=== PATIENT | female | born 1985 | race Caucasian/White ===

== ENCOUNTER 2023-04-18 08:43 | Outpatient (AMB) | payer OTHER, SELFPAY ==
[2023-04-18 08:53] VITALS: BP 124/60; PULSE 110; RESP 13; O2SAT 97; BMI 33.9
--- NOTE | 2023-04-18 08:53 | AM.OFFWIN_ITS ---
Intake Vital Signs 04/18/23 08:53 Height 5 ft 6 in Weight 210 lb BMI 33.9 BP 124/60 Blood Pressure Location Rt brachial Position Sitting Respiration 13 Pulse 110 H Pulse Source Pulse Oximeter Pulse Oximetry (%) 97 Oxygen Delivery Method Room Air Intake Visit Reasons: pink eye,congestion Intake Note: Patient is here to be assessed for pink eye which began 4 days ago with pink irritated eyes. This morning patient reports she had crusty eyes. Patient Tobacco Use Status: Never used Tobacco Accompanied by: Self / Same As Patient Allergies oxycodone [From Percocet] Allergy (Severe, Verified 04/18/23 09:05) Nausea and Vomiting Medication List - Last Reconciled 04/18/23 by Jovita Hernandez, [employer]VERTISING [employer]ATOR- desogestrel-ethinyl estradiol 0.15-0.03 mg (Apri) 1 tab PO DAILY lactobacillus combination no.9 (Adult 50 Plus Probiotic) PO Do you need a note to return to daycare/school/sports/work: Yes HPI HPI Comments History of Present Illness Details here today c/o pink eye 4 days ago, left eye was red; that night some drainage this AM woke up w/ crusting Crusting is now affecting bilat eyes L eye is itchy Exosed to dtr w/ pink eye - used polymyxin b however reports no improvement Assoc sx include sinus pressure and congestion Denies loss of vision, contact lenses. Glasses for driving only. Denies trauma to eye PFSH Social History Patient Tobacco Use Status: Never used Tobacco Review of Systems Const All systems reviewed & are unremarkable except as noted in HPI and below Physical Exam Vital Signs: Last Vital Signs Pulse 110 H 04/18/23 08:53 Resp 13 04/18/23 08:53 BP 124/60 04/18/23 08:53 Pulse Ox 97 04/18/23 08:53 Oxygen Delivery Method Room Air 04/18/23 08:53 BMI result Body Mass Index 33.9 Const Other: awake alert nad conjunctival injection bilat R>L, purulent drainage. No periorbital edema or photophobia PERRLA, EOMI EAC w/ cerumen Nares and turbinates wnl, maxillary tenderness w/ palp pharynx clear Assessment & Plan Assessment & Plan (1) Sinusitis: Code(s): J32.9 - Chronic sinusitis, unspecified Qualifiers: Sinusitis location: maxillary Chronicity: acute Recurrence: non- recurrent Qualified Code(s): J01.00 - Acute maxillary sinusitis, unspecified Plan: . (2) Conjunctivitis: Code(s): H10.9 - Unspecified conjunctivitis Qualifiers: Conjunctivitis type: acute Acute conjunctivitis type: bacterial Laterality: bilateral Qualified Code(s): H10.33 - Unspecified acute conjunctivitis, bilateral Plan: . Medications: New polymyxin B sulf-trimethoprim 10,000 unit- 1 mg/mL APPLY TO BOTH EYES while awake; do not exceed 6 doses in 24 hours 1 drp ophthalmic (eye) QID 5 days 10 mL 0RF amoxicillin-pot clavulanate 875-125 mg 1 tab PO BID 7 days 14 tabs 0RF Coding Level of Care Code Est Pt Level 3 (22367) Diagnoses Acute non-recurrent maxillary sinusitis J01.00 Sinusitis location: maxillary Chronicity: acute Recurrence: non-recurrent Acute bacterial conjunctivitis of both eyes H10.33 Conjunctivitis type: acute Acute conjunctivitis type: bacterial Laterality: bilateral
== END 2023-04-18 09:14 | disposition home or self-care (01) ==
PROVIDERS: Visit Provider Nurse Practitioner Family
DX: J01.00 Acute maxillary sinusitis, unspecified (principal); H10.33 Unspecified acute conjunctivitis, bilateral
CPT/HCPCS: 99213

== ENCOUNTER 2023-10-20 13:10 | Outpatient (AMB) | payer OTHER, SELFPAY ==
--- NOTE | 2023-10-20 13:18 | A.OFFPC_ITS ---
Vital Signs 3 10/20/23 13:24 Height 5 ft 6 in Weight 211 lb BMI 34.1 BP 118/72 Blood Pressure Location Rt brachial Position Sitting Respiration 16 Pulse 68 Pulse Source Pulse Oximeter Temp 98.0 F Temp Source Oral Pulse Oximetry (%) 99 Oxygen Delivery Method Room Air Intake Visit Reasons: TRANSMISSION REPAIRER/ Future operations, need new pcp Intake Note: patient here for new patient visit. Manager Field Investigations Required: No Is last menstrual period known: Yes Last menstrual period: 10/13/23 Post menopausal: No Patient : No Allergies oxycodone [From Percocet] Allergy (Severe, Verified 10/20/23 13:38) Nausea and Vomiting Medication List - Last Reconciled 10/20/23 by Jovita Hernandez, [facility]- desogestrel-ethinyl estradiol 0.15-0.03 mg (Apri) 1 tab PO DAILY lactobacillus combination no.9 (Adult 50 Plus Probiotic) PO Tobacco use date assessed: 10/20/23 Dental Screening Dental Screen Date: 10/20/23 Did you have a dental visit in the last 12 months?: Yes Did you have a dental problem in the last 6 months where you did not have access to dental care?: No Was dental information given to patient?: Patient has dentist HPI HPI Comments 2 History of Present Illness0 Details 38 y/o F basal cell carcinoma, renal sto judith Social: works as teacher Surgery: wisdom teeth, c section, renal stone PaternalGM age 60, she is still alive and well, Dad up to date on colon and WNL. Children: 2 boy age 8 and girl 6, alive and well. Maternal aunt with melanoma - alive. MaternalGF with SCC and Basal cell Mom with CLL, thyroid removed d/t goiter - alive. Health Maintenance Mammo August 2023 normal Tdap 2014 will update this today given her surgery in December UTD Specialist: Derm Optho July [address] Armstrong Here today as a new patient to establish care and for complete physical exam. No previous medical records available to me today. She reports that overall her health is well. At this time she is undergoing treatment for a basal cell carcinoma on the inner canthus of her eye, nasal side on the left. We will be having this removed January 25, [address] Zelaya @ [facility], followed by plastic surgery repair to the area by Dr Posey the same day Will need pre-op appt for this. Waiting on paperwork from surgeon's office at this time. General: Well developed, well nourished, in no acute distress. Appears stated age. Head: Normocephalic, atraumatic. Eyes: Pupils are equal, round and reactive to light and accommodation. Conjunctivae are clear. Vision grossly normal. Ears: TMs clear AU, EACS WNL Nose: Patent, without discharge. Mouth: There are no ulcers or lesions noted. No inflammation, no post nasal drip, no plaques nor exudates. Neck: Supple, no adenopathy or thyromegaly. Lungs: Clear to auscultation bilaterally. No rales, rhonchi or wheeze noted. Good air flow in all vallejo. Heart: Regular rate and rhythm. No murmurs, click, rubs or gallops are noted. Abdomen: Bowel sounds present in all quadrants. The abdomen is soft, nontender, with no masses or organomegaly noted. No hernias are noted. Musculoskeletal: Joints are nontender, without swelling, redness, or effusions. Range of motion is observed to be normal. Pulses: Peripheral pulses are equal and palpable bilaterally. Extremities: No clubbing, cyanosis nor edema is noted. Neurologic: Gait and station normal. Cranial Nerves 2-12 intact. Motor strength grossly symmetrical and intact. No sensory loss. Balance normal. Skin: No rashes, ulcers, or lesions noted. Turgor is good. Skin color is good. Hair and nails are without abnormalities. Psych: Normal eye contact, affect and mood appropriate, and normal interactions. Patient is alert and appropriate to context. Plan Return to the office the week of December for a preop clearance. Cancer screening labs done tomorrow, if there is anything abnormal I will call you and we will set up a plan to resolve these issues. Return to the office sooner as needed. [facility] Medical History (Updated 10/20/23 @ 16:42 by [facility] Skin cancer, basal cell Surgical History (Updated 10/20/23 @ 13:32 by Nae Awan) History of Family History (Updated 10/20/23 @ 13:36 by Nae Awan) Mother FH: mental illness High blood pressure Thyroid disorder Cancer Father High blood pressure Clotting disorder Paternal Grandmother Cancer Maternal Grandmother Cancer Social History Housing: House Patient Tobacco Use Status: Never used Tobacco e-Cigarette/Vaping Use: Never Used service: No Current occupational status: employed Current occupation: teacher Current occupational exposures/hazards: No Cognitive needs: No Hearing needs: No Vision needs: No Female Reproductive History Menstrual Date of last menstrual period: 10/13/23 Questionnaire PHQ-9 Over the last 2 weeks, how often have you been bothered by any of the following problems? 1. Little interest or pleasure in doing things: not at all 2. Feeling down, depressed, or hopeless: not at all 3. Trouble falling or staying asleep, or sleeping too much: not at all 4. Feeling tired or having little energy: not at all 5. Poor appetite or overeating: not at all 6. Feeling bad about yourself - or that you are a failure or have let yourself or your family down: not at all 7. Trouble concentrating on things, such as reading the newspaper or watching television: not at all 8. Moving or speaking so slowly that other people could have noticed. Or the opposite - being so fidgety or restless that you have been moving around a lot more than usual: not at all 9. Thoughts that you would be better off or of hurting yourself in some way: not at all Total score: 0 Depression Screening Interpretation: Negative Depression Screening Done: Yes 98165 - PHQ-9 Billing: Yes Source: Developed by Drs. Theodore Aguilera, Aleksandra Prater, Ashok Delgado and colleagues, with an educational santos from [employer]. Thrive Questionnaire Date Thrive assessed: 10/20/23 I am a: Patient What is your living situation today?: I have a steady place to live Within the past 12 months, did the food you bought not last and you didn't have the money to get more?: Never true Within the past 12 months, did you worry whether your food would run out before you got money to buy more?: Never true Do you have trouble paying for medicines?: No Do you have trouble getting transportation to medical appointments?: No Do you have trouble paying your heating and electricity bill?: No Do you have trouble taking care of your child, family member or friend?: No Do you have trouble with day-to-day activities such as bathing, preparing meals, shopping, managing finances, etc.?: No Are you currently unemployed and looking for a job?: No Are you interested in more education?: No Please select the resources that you would like help with: None Currently or been in a relationship where the following occur: No concerns reported THRIVE Score: 0 AUDIT C Alcohol Use Questionnaire (AUDIT-C) 1. How often do you have a drink containing alcohol?: Monthly or less 2. How many drinks containing alcohol do you have on a typical day when you are drinking?: 1 or 2 3. How often do you have six or more drinks on one occasion?: Never Total Score: 1 Score Reviewed/Action Taken: Yes YESSY-7 AMB Questionnaire YESSY-7 Date YESSY - 7 assessed: 10/20/23 Feeling nervous, anxious, or on edge: 0 = Not at all Not being able to stop or control worryin = Not at all Worrying too much about different things: 0 = Not at all Trouble relaxin = Not at all Being so restless that it is hard to sit still: 0 = Not at all Becoming easily annoyed or irritable: 0 = Not at all Feeling afraid as if something awful might happen: 0 = Not at all Total YESSY-7 score (0-4 normal; 5-9 mild; 10-14 moderate; 15-21 severe): 0 Source: Developed by Drs. Theodore Aguilera, Aleksandra Prater, Ashok Delgado and colleagues, with an educational santos from [employer]. YESSY-7 Assessment Billing YESSY-7 Assessment Tool: YESSY-7 Assessment 67605 Physical exam (Primary Care) Vital Signs: Last Vital Signs Temp 98.0 F 10/20/23 13:24 Pulse 68 10/20/23 13:24 Resp 16 10/20/23 13:24 BP 118/72 10/20/23 13:24 Pulse Ox 99 10/20/23 13:24 Oxygen Delivery Method Room Air 10/20/23 13:24 BMI result Body Mass Index 34.1 BMI Assessment/Plan discussion: High BMI High, discussed plan: lifestyle Tobacco/Smoking Status: Tobacco use Status Tobacco use date assessed 10/20/23 10/20/23 13:24 Patient Tobacco Use Status Never used Tobacco 10/20/23 13:20 e-Cigarette/Vaping Use Never Used 10/20/23 13:24 PHQ-9: PHQ-9 Score PHQ-9: Total score 0 10/20/23 14:23 Depression Screening Interpretation: Negative Thrive Assessment: Date of Thrive Assessment Date Thrive assessed 10/20/23 10/20/23 13:36 Currently or been in a relationship where the following occur: No concerns reported [facility] Face images: 2 1. Two raised flesh colored bumps. Patient reports this is the basal cell carcinoma that will be removed in December Immunizations Boostrix Tdap 2.5 Lf unit-8 mcg-5 Lf/0.5 mL intramuscular syringe Performing Provider: EILEEN Vicente Performing Location: [facility] Administered by: Manuela De Dios RN on 10/20/23 14:23 2 Dose Route Admin Location Dispensed Lot Number Expiration Date NDC Chief Science Officer 0.5 mL IM Left Deltoid 0.5 mL [id number] 11/03/25 17283-359-15 [place] 2 VIS Given Date VIS Provided VIS Publication Date 10/20/23 Single Vaccine 20 Eligibility Eligibility Date Funding Source Not [facility] Eligible 10/20/23 Private Assessment and Plan Assessment & Plan (1) Encounter for general adult medical examination without abnormal findings: Code(s): Z00.00 - Encounter for general adult medical examination without abnormal findings (2) Laboratory exam ordered as part of routine general medical examination: Code(s): Z00.00 - Encounter for general adult medical examination without abnormal findings (3) Basal cell carcinoma, face: Code(s): C44.310 - Basal cell carcinoma of skin of unspecified parts of face (4) Obesity (BMI 30.0-34.9): Code(s): E66.9 - Obesity, unspecified Orders: Orders 2 TSH reflex Free T4 Today Z00.00 - Encounter for general adult medical examination without abnormal findings Vitamin B12 and Folate Today Z00.00 - Encounter for general adult medical examination without abnormal findings IRON PROFILE Today Z00.00 - Encounter for general adult medical examination without abnormal findings Comprehensive Met. Panel Today Z00.00 - Encounter for general adult medical examination without abnormal findings Hemoglobin A1c Today Z00.00 - Encounter for general adult medical examination without abnormal findings Microalbumin, Random (w Creat) Today Z00.00 - Encounter for general adult medical examination without abnormal findings Complete Blood Count no Diff Today Z00.00 - Encounter for general adult medical examination without abnormal findings TDaP Immunization Today Z23 - Encounter for immunization LDL Cholesterol Direct Today Z00.00 - Encounter for general adult medical examination without abnormal findings Patient Instructions: Walk-In Care (Urgent Care): We Make it Easy Walk-in for urgent medical issues such as: ? Seasonal Allergies ? Insect Bites ? Cough ? Diarrhea ? Acute Asthma Attacks ? Back, Knee or Joint Pain ? Ear Infection ? Fever without a Rash ? Headaches ? Nausea ? [place] Eye, Rash or Skin Irritation ? Sore Throat ? Sports Physicals ? Vomiting Most insurances are accepted. Patients do not need to be part of the [facility] to seek care at the walk-in clinic. Locations [address] , [place] [address] ? [phone] [facility] Walk-In Care in [place] provides services to ages 18 and over. Open Tuesday-Tuesday: 8 a.m. to 5 p.m. and Tuesday: 9 a.m. to 3 p.m.* *Hours may vary due to staffing availability. To confirm Walk-In Care hours in [place], please call [phone]. [address] [place] [address] ? [phone] [facility] Walk-In Care in [place] provides services to ages 12 and over. Open Tuesday-Tuesday: 8 a.m. to 5 p.m. Hours may vary due to staffing availability. To confirm Walk-In Care hours in [place], please call [phone]. LABORATORY SERVICES: [facility] ? Primary Location [address] [place] [address] Tuesday through Tuesday 6:00 AM ? 5:00 PM Tuesday 7:00 AM ? 11:00 AM* [phone] The [facility] is centrally located near the front entrance of the [facility] for easy outpatient access. Convenient parking is provided for outpatients. *Hours may vary due to staffing availability. To confirm Laboratory hours for any location, please call [phone]. Offsite Location For your convenience, we offer offsite laboratory draw stations at the following locations: [address] [place] [address] ? [place] [address], [address], [place] Tuesday through Tuesday 7:30 AM ? 1:00 PM* [phone] *Hours may vary due to staffing availability. To confirm Laboratory hours for any location, please call [phone]. [place] [address] [facility], [place] Tuesday through Tuesday 6:00 AM ? 3:30 PM* Tuesday 6:30 AM ? 3 PM* [phone] *Hours may vary due to staffing availability. To confirm Laboratory hours for any location, please call [phone]. [address] [facility] Tuesday through Tuesday 7:30 AM ? 4:00 PM* [phone] *Hours may vary due to staffing availability. To confirm Laboratory hours for any location, please call [phone] [place] [address] Tuesday through 9:00 AM ? 4:00 PM* *Hours may vary due to staffing availability. To confirm Laboratory hours for any location, please call [phone]. Appointments are not necessary. Walk-ins are welcome. Like all the departments throughout the [facility], our Lab undergoes frequent reviews to ensure the quality and accuracy of test results, and our staff takes special pride in its status as a nationally accredited facility. Patient Portal: ONE PATIENT. ONE RECORD. BETTER CARE. [facility] has a fully integrated, cutting- edge mobile electronic health information system that has revolutionized the way we care for our patients and manage our organization. This system improves communication and coordination enabling us to provide safe, higher-quality care, and an overall positive experience for staff and patients. Our first priority, as always, is to deliver the highest quality care possible. The system is running in the background supporting that priority. This portal is for all [facility] services and practices. If you are experiencing any technical difficulties with enrolling or logging into the Patient Portal please complete the [facility] Patient Portal Technical Support Form. [facility] now offers a new secure on-line interactive tool for patients to review their health information ? Patient Portal. This interactive web portal will enable patients and their families to take an active role in their care by providing easy, secure access to their health information via the internet. The Patient Portal provides patients with instant access to their health information, including laboratory results, medications, allergies, demographic information, visit history, and more. In addition to managing their own care, parents and health care proxies with authorized consent will appreciate the ability to access the records of those individuals for whom they provide care. Please note: if you wish to gain access (Proxy) to another patient?s portal, you will be required to come to the Medical Records Department in person at [facility]. Both the patient giving proxy access and the proxy will need to provide photo identification and complete the appropriate authorization. The Patient Portal also allows track their appointments online. The [facility] Patient Portal also saves patients time by allowing them to submit updates to their demographic and contact information prior to their visits. Portal email notifications will also alert patients to any new activity on their portal, such as test results and new appointments. In order to initially enroll in the [facility] Patient Portal, you will need to enter some required information including the following: ? your [facility] Medical Record number ? your personal home email address ? name ? date of Please note: In order to enroll in the [facility] Patient Portal, we need to have your email address on file in your electronic medical record. The email address needs to be specific for one person (yourself) in order for your Portal enrollment to be successful. You can update your email address in person with our Registration staff when you are registering for a hospital visit. Otherwise, you will need to come to the Health Information Management (Medical Records) Department at [facility]. We are open from Tuesday ? Tuesday from 7:30 a.m. ? 4:30 p.m. You will be required to present a photo id. Once you have successfully enrolled in the Patient Portal, you will receive a one-time user id and password for the Portal, sent to your email address. This will allow you to log into the Patient Portal within 99 hrs and reset your own logon id and password, and define personal security questions. Once your permanent login and password have been set, you can log into the [facility] Patient Portal at any time via the blue button above or from the Portal Logon button on any page of the [facility] website. [facility] encourage all of our patients to enroll in Patient Portal as it presents a valuable opportunity for patients and their families to actively participate in their care and stay healthy Welcome to [facility]. We look forward to working with you. Health screenings for women You should visit your health care provider from time to time, even if you are healthy. The purpose of these visits is to: Screen for medical issues Assess your risk for future medical problems Encourage a healthy lifestyle Update vaccinations and other preventive care services Help you get to know your provider in case of an illness Information Even if you feel fine, you should still see your provider for regular checkups. These visits can help you avoid problems in the future. For example, the only way to find out if you have high blood pressure is to have it checked regularly. High blood sugar and high cholesterol levels also may not have any symptoms in the early stages. A simple blood test can check for these conditions. There are specific times when you should see your provider or receive specific health screenings. The [place] Preventive Services Task Force publishes a list of recommended screenings. Below are screening guidelines for women ages 18 to 39. BLOOD PRESSURE SCREENING Your blood pressure should be checked at least once every 3 to 5 years if: Your blood pressure is in the normal range (top number less than 120 mm Hg and bottom number less than 80 mm Hg) You don't have risk factors for high blood pressure Ask your provider if you need your blood pressure checked more often if: The top number is 120 to 129 mm Hg or the bottom number is 70 to 79 mm Hg You have diabetes, heart disease, kidney problems, are overweight, or have certain other health conditions You have a first-degree relative with high blood pressure You are Black You had high blood pressure during a If the top number is 130 mm Hg or greater or the bottom number is 80 mm Hg or greater, this is considered stage 1 hypertension. Schedule an appointment with your provider to learn how you can reduce your blood pressure. Watch for blood pressure screenings in your area. Ask your provider if you can stop in to have your blood pressure checked. BREAST CANCER SCREENING Experts do not agree about the benefits of breast self-exams in finding breast cancer or saving lives. Talk to your provider about what is best for you. A screening mammogram is not recommended for most women under age 40. Your provider may discuss and recommend mammograms, MRI scans, or ultrasounds if you have an increased risk for breast cancer, such as: A mother or sister who had breast cancer at a young age (most often starting screening earlier than the age the close relative was diagnosed) You carry a high-risk genetic marker CERVICAL CANCER SCREENING Cervical cancer screening should start at age 21 years unless your provider advises otherwise. After the first test: Women ages 21 through 29 should have a Pap test every 3 years. Exoprts do not agree on whether HPV testing is recommended for this age group. Women ages 30 through 65 should be screened with either a Pap test every 3 years or the HPV test every 5 years or both tests every 5 years (called cotesting ). Women who have been treated for precancer (cervical dysplasia) should continue to have Pap tests for 20 years after treatment or until age 65, whichever is longer. If you have had your uterus and cervix removed (total hysterectomy), and you have not been diagnosed with cervical cancer or precancer (high grade cervical neoplasia), you do not need cervical cancer screening. CHOLESTEROL SCREENING Cholesterol screening should begin at: Age 45 for women with no known risk factors for coronary heart disease Age 20 for women with known risk factors for coronary heart disease Repeat cholesterol screening should take place: Every 5 years for women with normal cholesterol levels More often if changes occur in lifestyle (including weight gain and diet) More often if you have diabetes, heart disease, kidney problems, or certain other conditions DIABETES SCREENING You should be screened for diabetes starting at age 35 and then repeated every 3 years if you have no risk factors for diabetes. Screening may need to start earlier and be repeated more often if you have other risk factors for diabetes, such as: You have a first degree relative with diabetes. You are overweight or have obesity. You have high blood pressure, prediabetes, or a history of heart disease. Screening for diabetes should be done if you are planning to become and you are overweight and have other risk factors such as high blood pressure. DENTAL EXAM Go to the dentist once or twice every year for an exam and cleaning. Your dentist will evaluate if you need more frequent visits. EYE EXAM Have an eye exam every 5 to 10 years before age 40. If you have vision problems, have an eye exam every 2 years or more often if recommended by your provider. You should have an eye exam that includes an examination of your retina (back of your eye) at least every year if you have diabetes. IMMUNIZATIONS Commonly needed vaccines include: Flu shot: get one every year. COVID-19 vaccine: ask your provider what is best for you. Tetanus-diphtheria and acellular pertussis (Tdap) vaccine: have one at or after age 19 as one of your tetanus-diphtheria vaccines if you did not receive it as an adolescent. Tetanus-diphtheria: have a booster (or Tdap) every 10 years. Varicella vaccine: receive 2 doses if you never had chickenpox or the varicella vaccine. Hepatitis B vaccine: receive 2, 3, or 4 doses, depending on your exact circumstances. Measles, mumps, and rubella (MMR) vaccine: receive 1 to 2 doses if you are not already immune to MMR. Your provider can tell you if you are immune. Ask your provider about the human papillomavirus (HPV) vaccine if: You have not received the HPV vaccine in the past You have not completed the full vaccine series (you should catch up on this shot) Ask your provider if you should receive other immunizations if you have certain health problems that increase your risk for some diseases such as pneumonia. INFECTIOUS DISEASE SCREENING Women who are sexually active should be screened for chlamydia and gonorrhea up until age 25. Women 25 years and older should be screened for chlamydia and gonorrhea if at high risk. Screening for hepatitis C: All adults ages 18 to 79 should get a one-time test for hepatitis C. people should be screened at every . Screening for human immunodeficiency virus (HIV): All people ages 15 to 65 should get a one-time test for HIV. Depending on your lifestyle and medical history, you may also need to be screened for infections such as syphilis and HIV, as well as other infections. PHYSICAL EXAM All adults should visit their provider from time to time, even if they are healthy. The purpose of these visits is to: Screen for disease Assess your risk of future medical problems Encourage a healthy lifestyle Update your vaccinations and other preventive care services Maintain a relationship with a provider in case of an illness Your height, weight, and BMI should be checked at every exam. During your exam, your provider may ask you about: Depression and anxiety Diet and exercise Alcohol and tobacco use Safety issues, such as using seat belts, smoke detectors, and intimate partner violence Your medicines and risk for interactions SKIN SELF-EXAM Your provider may check your skin for signs of skin cancer, especially if you're at high risk, such as if you: Have had skin cancer before Have close relatives with skin cancer Have a weakened immune system OTHER SCREENING Talk with your provider about colon cancer screening if you have a strong family history of colon cancer or polyps, or if you have had inflammatory bowel disease or polyps yourself. Routine bone density screening of women under 40 is not recommended. Coding Level of Care Code New Pt Prev Care 40-64y(93762) Diagnoses Encounter for general adult medical examination without abnormal findings Z00.00 Laboratory exam ordered as part of routine general medical examination Z00.00 Basal cell carcinoma, face C44.310 Obesity (BMI 30.0-34.9) E66.9 Additional Codes YESSY-7 Assessment Billing - YESSY-7 Assessment Tool: YESSY-7 Assessment 76365 ([id number])
[2023-10-20 13:24] VITALS: BP 118/72; PULSE 68; RESP 16; TEMP 36.7; O2SAT 99; BMI 34.1
== END 2023-10-20 14:21 | disposition home or self-care (01) ==
PROVIDERS: PCP Nurse Practitioner Family; Visit Provider Nurse Practitioner Family
DX: Z00.00 Encounter for general adult medical examination without abnormal findings (principal); E66.9 Obesity, unspecified; Z68.34 Body mass index [BMI] 34.0-34.9, adult; Z23 Encounter for immunization; C44.310 Basal cell carcinoma of skin of unspecified parts of face
CPT/HCPCS: 90471; 90715; 99396

== ENCOUNTER 2023-10-21 08:13 | Outpatient (REF) | payer OTHER, SELFPAY ==
[2023-10-21 11:51] LABS: Hemoglobin 13.8 g/dl (12.0-16.0); Mean Corpuscular HGB Conc 33.7 g/dl (31.0-35.0); Mean Corpuscular Hemoglobin 29.9 pg (27.0-33.0); Mean Corpuscular Volume 88.7 fL (80.0-98.0); Mean Platelet Volume 9.8 fL (9.4-12.3); Platelet Count 284 X10*3/uL (160-400); Red Blood Count 4.62 X10*6/uL (4.20-5.50); Red Cell Distribution Width 12.6 % (11.0-16.0); White Blood Count 8.6 X10*3/uL (4.8-10.8)
[2023-10-21 12:03] LABS: Estimated Average Glucose 91 mg/dL; Hemoglobin A1C 100.4769 umol/L; Hemoglobin A1c % 4.8 % (<6.0)
[2023-10-21 12:14] LABS: Creatinine Urine 201.42 mg/dL; Microalbum/Creatinine Ratio Ur 5.4 ug/mg cr (<30)
[2023-10-21 12:17] LABS: Alanine Aminotransferase 14 U/L (0-31); Albumin Level 4.2 g/dL (3.5-5.0); Alkaline Phosphatase 70 U/L (39-117); Anion Gap 15 (12-20); Aspartate Amino Transferase 13 U/L (5-31); Bilirubin Total 0.8 mg/dL (0.0-1.0); Blood Urea Nitrogen 9 mg/dL (9-16); Calcium 9.6 mg/dL (8.4-10.2); Carbon Dioxide 22 mmol/L (22-29); Chloride 107 mmol/L (96-108); Estimated Glomerular Filt Rate > 60; Glucose Random 103 mg/dL (60-115); Iron 143 mcg/dL (30-160); Percent Iron Saturation 51 % (15-50); Potassium 3.6 mmol/L (3.3-5.1); Sodium 140 mmol/L (135-145); Total Iron Binding Capacity 281 mcg/dL (228-428); Total Protein 7.4 g/dL (6.5-8.0); Unsaturated Iron Binding 138 ug/dL
[2023-10-21 12:19] LABS: TSH reflex Free T4 2.47 uIU/mL (0.32-4.0)
[2023-10-21 12:31] LABS: Vitamin B12 225 pg/mL (200-900)
[2023-10-24 21:44] LABS: LDL Cholesterol Direct 92 mg/dL (<100)
== END 2023-10-21 08:14 | disposition home or self-care (01) ==
LOC: HO.WFDLDS 08:13
PROVIDERS: Visit Provider Nurse Practitioner Family
DX: Z00.00 Encounter for general adult medical examination without abnormal findings (principal); Z13.1 Encounter for screening for diabetes mellitus; Z13.89 Encounter for screening for other disorder
CPT/HCPCS: 36415; 80053; 82043; 82570; 82607; 82746; 83036; 83540; 83721; 84443; 85027

== ENCOUNTER → 2024-01-12 09:56 | Outpatient (AMB) | payer OTHER, SELFPAY ==
--- NOTE | 2024-01-12 10:00 | A.OFFPC_ITS ---
Vital Signs 01/12/24 10:03 Height 5 ft 6 in Weight 213 lb BMI 34.4 BP 124/70 Blood Pressure Location Lt brachial Position Sitting Respiration 14 Pulse 77 Pulse Source Pulse Oximeter Pulse Oximetry (%) 98 Oxygen Delivery Method Room Air Intake Visit Reasons: 1st week Oct 30 min PRE OP CLEARANCE Intake Note: pre op clearance Allergies oxycodone [From Percocet] Allergy (Severe, Verified 01/12/24 10:02) Nausea and Vomiting Tobacco use date assessed: 10/20/23 Dental Screening Dental Screen Date: 10/20/23 HPI HPI Comments History of Present Illness Details 38 y/o F basal cell carcinoma, renal sto judith Social: works as teacher Surgery: wisdom teeth, c section PaternalGM age 60, she is still alive and well, Dad up to date on colon and WNL. Children: 2 boy age 8 and girl 6, alive and well. Maternal aunt with melanoma - alive. MaternalGF with SCC and Basal cell Mom with CLL, thyroid removed d/t goiter - alive. Health Maintenance Mammo August 2023 normal Tdap 10/20/23 Pap UTD Flu 01/12/24 Specialist: [facility] July [address] Armstrong Here today for preoperative clearance. Surgery Type:MOHS Left medial eye lid Basal cell carcinoma Anesthesia Type: General/MAC Surgeon: Dr Zelaya @ [facility], followed by plastic surgery repair to the area by Dr Jimmy Ruiz the same day Date: 01/25/24 Any past surgical procedures: yes Any complications from anesthesia or in post-op period: other than cannot tolerate percocet as this causes extreme vomiting, denies any other problems. ASA or NSAID Use: occasional use of nsaid, last time 1 month ago. Current smoker: Denies Alcohol use: Socially Drug use: Denies METs: > 4 climb flight of stairs, golf, walk, yardwork Medical history: Asthma Denies COPD Denies Obesity BMI 34.4 Diabetes No Exam: Awake alert NAD MMM RRR LS CTAB No edema BLE Labs 10/21/23 CBC, CMP, TSH, Vit D, B12, Folate, urine micro/album WNL EKG: complete Education Flu shot admin today Medically cleared with low risk for complications. Follow up with surgeon and all recommendations pre and post operatively. This note is constructed using voice recognition software. While every effort has been made to ensure accuracy in manufacturer's representative, still errors may have been included Sometimes, these errors may affect the content or meaning of the given sentence . Total time spent caring for the patient today was 33 minutes. This includes time spent before the visit reviewing the chart, time spent during the visit, and time spent after the visit on documentation [facility] Medical History (Updated 10/20/23 @ 16:42 by Jovita Hernandez, [facility]) Skin cancer, basal cell Surgical History (Updated 10/20/23 @ 13:32 by Nae Awan MA) History of Family History (Updated 10/20/23 @ 13:36 by Nae Awan MA) Mother FH: mental illness High blood pressure Thyroid disorder Cancer Father High blood pressure Clotting disorder Paternal Grandmother Cancer Maternal Grandmother Cancer Social History Housing: House Patient Tobacco Use Status: Never used Tobacco e-Cigarette/Vaping Use: Never Used service: No Current occupational status: employed Current occupation: teacher Current occupational exposures/hazards: No Cognitive needs: No Hearing needs: No Vision needs: No Questionnaire PHQ-9 Over the last 2 weeks, how often have you been bothered by any of the following problems? 1. Little interest or pleasure in doing things: not at all 2. Feeling down, depressed, or hopeless: not at all 3. Trouble falling or staying asleep, or sleeping too much: not at all 4. Feeling tired or having little energy: not at all 5. Poor appetite or overeating: not at all 6. Feeling bad about yourself - or that you are a failure or have let yourself or your family down: not at all 7. Trouble concentrating on things, such as reading the newspaper or watching television: not at all 8. Moving or speaking so slowly that other people could have noticed. Or the opposite - being so fidgety or restless that you have been moving around a lot more than usual: not at all 9. Thoughts that you would be better off or of hurting yourself in some way: not at all Total score: 0 96430 - PHQ-9 Billing: Yes Source: Developed by Drs. Theodore Aguilera, Aleksandra Prater, Ashok Delgado and colleagues, with an educational santos from [employer]. Thrive Questionnaire Date Thrive assessed: 01/12/24 I am a: Patient What is your living situation today?: I have a steady place to live Within the past 12 months, did the food you bought not last and you didn't have the money to get more?: Never true Within the past 12 months, did you worry whether your food would run out before you got money to buy more?: Never true Do you have trouble paying for medicines?: No Do you have trouble getting transportation to medical appointments?: No Do you have trouble paying your heating and electricity bill?: No Do you have trouble taking care of your child, family member or friend?: No Do you have trouble with day-to-day activities such as bathing, preparing meals, shopping, managing finances, etc.?: No Are you currently unemployed and looking for a job?: No Are you interested in more education?: No Please select the resources that you would like help with: None Currently or been in a relationship where the following occur: No concerns reported THRIVE Score: 0 AUDIT C Alcohol Use Questionnaire (AUDIT-C) 1. How often do you have a drink containing alcohol?: Monthly or less Total Score: 1 YESSY-7 AMB Questionnaire YESSY-7 Date YESSY - 7 assessed: 01/12/24 Feeling nervous, anxious, or on edge: 0 = Not at all Not being able to stop or control worryin = Not at all Worrying too much about different things: 0 = Not at all Trouble relaxin = Not at all Being so restless that it is hard to sit still: 0 = Not at all Becoming easily annoyed or irritable: 0 = Not at all Feeling afraid as if something awful might happen: 0 = Not at all Total YESSY-7 score (0-4 normal; 5-9 mild; 10-14 moderate; 15-21 severe): 0 Source: Developed by Drs. Theodore Aguilera, Aleksandra Prater, Ashok Delgado and colleagues, with an educational santos from [employer]. YESSY-7 Assessment Billing YESSY-7 Assessment Tool: YESSY-7 Assessment 29957 Physical exam (Primary Care) Vital Signs: Last Vital Signs Pulse 77 01/12/24 10:03 Resp 14 01/12/24 10:03 BP 124/70 01/12/24 10:03 Pulse Ox 98 01/12/24 10:03 Oxygen Delivery Method Room Air 01/12/24 10:03 BMI result Body Mass Index 34.4 Tobacco/Smoking Status: Tobacco use Status Tobacco use date assessed 10/20/23 01/12/24 10:02 Patient Tobacco Use Status Never used Tobacco 01/12/24 10:02 e-Cigarette/Vaping Use Never Used 01/12/24 10:02 PHQ-9: PHQ-9 Score PHQ-9: Total score 0 01/12/24 10:53 Thrive Assessment: Date of Thrive Assessment Date Thrive assessed 01/12/24 01/12/24 10:05 Currently or been in a relationship where the following occur: No concerns reported Office Procedures EKG 26356-[id number], Complete Flu Questionnaire Does the patient have a severe egg allergy?: No Does the patient have severe life threatening allergies?: Yes Does the patient have a fever or illness today?: No Has the patient ever had Guillain-Index Syndrome?: No Has the patient ever had any past reaction to a flu shot?: No Comment: Patient is severely allergic to walnuts, they cause her throat to swell. Immunizations Fluarix Triv [id number] (PF) 45 mcg (15 mcg x 3)/0.5 mL IM syringe Performing Provider: NICOLE Vicente Performing Location: [facility] – [place] Family Medicine Administered by: Melina Calderon RN on 01/12/24 10:58 Dose Route Admin Location Dispensed Lot Number Expiration Date NDC Forms Examiner 0.5 mL IM Left Deltoid 0.5 mL [id number] 09/24/24 09437-792-08 [employer] [facility] VIS Given Date VIS Provided VIS Publication Date 01/12/24 Single Vaccine 20 Eligibility Eligibility Date Funding Source Not [facility] Eligible 01/12/24 Private Coding Level of Care Code Est Pt Level 4 (29688) Complex EM visit Add On G2211 Diagnoses Pre-operative clearance Z01.818 CPT Codes EKG - CPT: 81688-[id number], Complete ([id number]) Additional Codes YESSY-7 Assessment Billing - YESSY-7 Assessment Tool: YESSY-7 Assessment 46144 ([id number]) Assessment & Plan Assessment & Plan (1) Pre-operative clearance: Code(s): Z01.818 - Encounter for other preprocedural examination Plan: . Plan . Orders: Orders AMB EKG-In Office Today Z13.6 - Encounter for screening for cardiovascular disorders Influenza [id number] Immunization Today Z23 - Encounter for immunization
[2024-01-12 10:03] VITALS: BP 124/70; PULSE 77; RESP 14; O2SAT 98; BMI 34.4
== END ==
PROVIDERS: PCP Nurse Practitioner Family; Visit Provider Nurse Practitioner Family
DX: Z23 Encounter for immunization (principal); Z01.818 Encounter for other preprocedural examination

== ENCOUNTER → 2024-01-12 09:56 | Outpatient (BNVA) | payer OTHER, SELFPAY | PROVIDERS: PCP Nurse Practitioner Family; Visit Provider Nurse Practitioner Family | DX: Z01.818 Encounter for other preprocedural examination (principal); Z23 Encounter for immunization | CPT/HCPCS: 90471; 90656; 93005; 96127 ==